=== PATIENT | male | born 1960 | race Caucasian/White ===

== ENCOUNTER 2017-11-10 19:02 | Emergency (ER) | payer SELFPAY ==
[~2017-11-10] VITALS: Ht 177.8 cm; Wt 120.0 kg
[~2017-11-10 19:02] MED LIST: AMLODIPINE2.5 MG PO; AMLODIPINE5 MG PO; LISINOPRIL10 MG PO; LISINOPRIL20 MG PO; LISINOPRIL5 MG PO
[2017-11-10] MEDS ORDERED: LISINOPRIL20 MG PO (19:28)
[2017-11-10] MEDS ORDERED: ATENOLOL25 MG PO (19:29)
[2017-11-10 19:40] LABS: HEMATOCRIT 45.9 % (39.0-50.0); HEMOGLOBIN 15.8 g/dl (14.0-18.0); IMMATURE GRANULOCYTES 0.3 % (0.0-1.0); MEAN CELL VOLUME 91.4 fL CALC (80.0-100.0); MEAN CORPUSCULAR HGB 31.5 pG CALC (26.0-32.0); MEAN CORPUSCULAR HGB CONC 34.4 g/L CALC (32.0-36.0); NEUT# 5.97 thou/uL (1.82-7.42); RED BLOOD COUNT 5.02 mill/uL (4.70-6.10); RED CELL DISTRI WIDTH 13.2 % (11.5-15.5)
[2017-11-10 19:47] LABS: ALKALINE PHOSPHATASE 79 u/l (38-126); ANION GAP 23 (6-22 (CALC)); BUN 7 mg/dL (9-20); BUN/CREATININE RATIO 12 (12-20 (CALC)); CALCIUM 9.2 mg/dL (8.4-10.2); CARBON DIOXIDE 19 mmol/l (22-30); CHLORIDE 103 mmol/l (95-108); CREATININE 0.6 mg/dL (0.7-1.3); GFR > 60 ML/MIN (>=60 (CALC)); GFR FOR AFR.AMER. > 60 ML/MIN (>=60 (CALC)); GLUCOSE 123 mg/dL (75-110); SGOT/AST 34 u/l (17-59); SGPT/ALT 46 u/l (21-72); SODIUM 141 mmol/l (137-146); TOTAL PROTEIN 7.8 g/dL (6.3-8.2)
[2017-11-10 20:07] LABS: ETHYL ALCOHOL 296 mg/dl (0-30)
[2017-11-10 23:33] VITALS: BP 161/89
== END 2017-11-10 23:30 | disposition home or self-care (01) | DRG 605 ==
LOC: ED 19:02
PROVIDERS: Emergency Medicine
PROC: 0HQ0XZZ Repair Scalp Skin, External Approach (ICD-10-PCS; principal; 2017-11-10)
DX: S01.01XA Laceration without foreign body of scalp, initial encounter (principal); F10.129 Alcohol abuse with intoxication, unspecified; Y90.8 Blood alcohol level of 240 mg/100 ml or more; W01.198A Fall on same level from slipping, tripping and stumbling with subsequent striking against other object, initial encounter; Y93.01 Activity, walking, marching and hiking; Y92.008 Other place in unspecified non-institutional (private) residence as the place of occurrence of the external cause

== ENCOUNTER 2019-08-23 11:08 | Observation (INO) | payer SELFPAY ==
[~2019-08-23] VITALS: Ht 177.8 cm; Wt 111.4 kg
[~2019-08-23 11:08] MED LIST changes: +ATENOLOL25 MG PO
--- NOTE | 2019-08-23 11:10 | NUR ---
PT TO ROOM VIA WHEELCAHIR FOR BEDSIDE TRIAGE.
--- NOTE | 2019-08-23 11:51 | NUR ---
PT MEDICATED PER ORDERED FOR 10/10 PAIN TO LLQ RADIATING TO TESTICLE.
[2019-08-23 11:59] LABS: HEMATOCRIT 45.4 % (39.0-50.0); HEMOGLOBIN 15.5 g/dl (14.0-18.0); IMMATURE GRANULOCYTES 0.4 % (0.0-5.0); MEAN CELL VOLUME 90.6 fL CALC (80.0-100.0); MEAN CORPUSCULAR HGB 30.9 pG CALC (26.0-32.0); MEAN CORPUSCULAR HGB CONC 34.1 g/L CALC (32.0-36.0); NEUT# 7.16 thou/uL (1.82-7.42); RED BLOOD COUNT 5.01 mill/uL (4.70-6.10); RED CELL DISTRI WIDTH 12.8 % (11.5-15.5)
[2019-08-23 12:15] LABS: ALBUMIN 4.4 g/dL (3.2-5.0); ALKALINE PHOSPHATASE 96 u/l (38-126); AMYLASE 34 u/l (30-110); ANION GAP 14 (6-22 (CALC)); BUN 10 mg/dL (9-20); BUN/CREATININE RATIO 14 (12-20 (CALC)); CARBON DIOXIDE 26 mmol/l (22-30); CHLORIDE 102 mmol/l (95-108); CREATININE 0.7 mg/dL (0.7-1.3); GFR > 60 ML/MIN (>=60 (CALC)); GFR FOR AFR.AMER. > 60 ML/MIN (>=60 (CALC)); LIPASE 132 u/l (23-300); SGOT/AST 32 u/l (17-59); SODIUM 138 mmol/l (137-146); TOTAL PROTEIN 7.5 g/dL (6.3-8.2)
--- NOTE | 2019-08-23 12:25 | NUR ---
PT PRESENTS WITH INGUINAL PAIN THAT RADIATES TO TESTICAL. PT STATES PAIN OF 10/10. INGUINAL HERNIA PRESENT IN THE LEFT SIDE WHERE SWELLING SPREADS TO LEFT TESTICAL. PT ADVISED OF PLAN OF CARE AND WILL BE CLOSELY MONIORED. CALL LIGHT WITHIN REACH.
--- NOTE | 2019-08-23 13:00 | NUR ---
PT RESTING IN STRETCHER WITH EYES CLOSED. PT AWARE OF NPO STATUS AND WAIT TIME. CALL CHEEMA WITHIN REACH.
--- NOTE | 2019-08-23 13:30 | NUR ---
PT AGAIN REMINDED OF NEED FOR URINE SAMPLE. PT SITTING UP RIGHT IN STRETCHER TO OBTAIN SAMPLE.
[2019-08-23 13:57] LABS: URINE BILIRUBIN - DIPSTICK NEGATIVE (NEGATIVE); URINE BLOOD DIPSTICK NEGATIVE (NEGATIVE); URINE COLOR YELLOW; URINE GLUCOSE - DIPSTICK NEGATIVE (NEGATIVE); URINE KETONE NEGATIVE (NEGATIVE); URINE LEUK ESTERASE NEGATIVE (NEGATIVE); URINE NITRITE - DIPSTICK NEGATIVE (Negative); URINE PROTEIN - DIPSTICK NEGATIVE (NEG-TRACE); URINE SPECIFIC GRAVITY 1.015; URINE UROBILINOGEN - DIPSTICK 0.2 E.U./dL (0.2)
--- NOTE | 2019-08-23 14:10 | NUR ---
EVER FERREIRA FROM OR CALLED. ETA 20 MINS FOR PICKUP.
--- NOTE | 2019-08-23 14:38 | NUR ---
PT AOX4, PT STATES BEING FLUSTERED BECAUSE HE WAS NOT "EXPECTING THIS" REFERRING TO THE SURGERY. PT GOT ANGRY AND VERBAL. ARABELLA Martin RN AND I CALMED HIM DOWN BY GIVING HIM OPTIONS OF USING EITHER HOSPITAL PHONE IF PROBLEMS WITH HIS CELL PHONE HE MENTIONS HE CANNOT REACH ANYONE. PT CALMS DOWN AND ASKS FOR A FEW MINUTES TO TRY AND REACH HIS FAMILY. PT DENIES ANY NEEDS AND WANT TO DO THE CALLING HIMSELF. WE STEP OUT OF THE ROOM GIVING HIM PRIVACY AND MD NOTIFIED. WILL CONTINUE TO MONIOR.
--- NOTE | 2019-08-23 14:50 | NUR ---
PREPARED PT FOR SURGURY. PT AOX4, CALM AND COOPERATIVE. PT ADVISED OF PLAN OF CARE. WILL CONTINUE TO MONITOR.
--- NOTE | 2019-08-23 15:00 | NUR ---
JOSE CAME OVER TO ER TO TAKE PT TO OR.
--- NOTE | 2019-08-23 16:04 | NUR ---
GAVE REPORT TO BISI QUINTERO.
[2019-08-23] MEDS ORDERED: PERCOCET 5/325M1 TAB PO (17:07)
[2019-08-23] MEDS ORDERED: TORADOL PO (17:07)
--- NOTE | 2019-08-23 18:18 | NUR ---
PT ARRIVES FROM OR VIA STRETCHER WITH OR STAFF x2 IN STABLE CONDITION. PT AMBULATES FROM STRETCHER TO BED WITH 1 ASSIST. SMALL INCICION TO LEFT LOWER ABD FOLD CLOSED WITH DERMABOND FROM SURGERY. PT ACCLAMATED TO THE ROOM. POST OP VISTALS OBTAINED. WILL CONTINUE TO MONITOR.
[2019-08-23 18:30] VITALS: BP 133/76
[2019-08-23 18:45] VITALS: BP 141/80
[2019-08-23 19:00] VITALS: BP 140/78
--- NOTE | 2019-08-23 19:00 | NUR ---
REPORT RECEIVED FROM LEON LYLES. PT RESTING IN BED. NO S/S OF DISTRESS AT THIS TIME. SAFETY PRECAUTIONS IN PLACE. WILL CONTINUE TO MONITOR.
[2019-08-23 19:15] VITALS: BP 128/81
--- NOTE | 2019-08-23 20:30 | NUR ---
PT RESTING IN BED. ALERT AND ORIENTED. RESPIRATIONS EVEN AND UNLABORED ON RA. LUNGS SOUND CLEAR. PEDAL PULSES STRONG. #18 IN LAC PATENT AND HEALTHY. POC DISCUSSED WITH PT. PT DENIES ANY NEEDS AT THIS TIME. SAFETY PRECAUTIONS IN PLACE. WILL CONTINUE TO MONITOR.
[2019-08-23 20:59] VITALS: BP 155/85
--- NOTE | 2019-08-23 22:23 | NUR ---
Discharge instructions given. Patient verbalizes understanding of same. Discharged in stable condition via Wheelchair to Home with family. All belongings sent with pt.
== END 2019-08-23 22:30 | disposition home or self-care (01) | DRG 351 ==
LOC: ED 11:08 → ED-I 13:47 → ED 14:13 → MS2 14:14
PROVIDERS: ADMIT Surgery; ATTEND Surgery
PROC: 0YU60JZ Supplement Left Inguinal Region with Synthetic Substitute, Open Approach (ICD-10-PCS; principal; 2019-08-23)
DX: K40.30 Unilateral inguinal hernia, with obstruction, without gangrene, not specified as recurrent (principal); Q43.8 Other specified congenital malformations of intestine; I10 Essential (primary) hypertension; T46.5X6A Underdosing of other antihypertensive drugs, initial encounter; F17.210 Nicotine dependence, cigarettes, uncomplicated; Z91.128 Patient's intentional underdosing of medication regimen for other reason
CPT/HCPCS: C9290; J0131; J2710; Q9967